=== PATIENT | female | born 1980 | race Caucasian/White ===

== ENCOUNTER → 2016-11-29 | Outpatient (RCR) | payer OTHER | END | disposition home or self-care (01) | LOC: M OUTALCOH 11-01 09:05 | PROVIDERS: ATTEND Psychiatry & Neurology Psychiatry | DX: F10.20 Alcohol dependence, uncomplicated (principal); Z72.0 Tobacco use ==

== ENCOUNTER 2016-12-13 09:00 | Outpatient (RCR) | payer OTHER | END 2016-12-27 | LOC: M OUTALCOH 09:00 | PROVIDERS: ATTEND Psychiatry & Neurology Psychiatry | DX: F10.20 Alcohol dependence, uncomplicated (principal); Z72.0 Tobacco use ==

== ENCOUNTER 2016-12-30 10:39 | Outpatient (RCR) | payer OTHER | END 2017-01-27 | LOC: M OUTALCOH 10:39 | PROVIDERS: ATTEND Psychiatry & Neurology Psychiatry | DX: F10.20 Alcohol dependence, uncomplicated (principal); Z72.0 Tobacco use ==

== ENCOUNTER → 2017-02-18 | Outpatient (CLI) | payer OTHER ==
--- NOTE | 2017-02-19 10:22 | REP ---
Lumbar spine five views: There are no comparisons. There is mild scoliosis convex right, possibly positional. Vertebral body heights, interspacing alignment are normal. There is no spondylolysis or spondylolisthesis. The pedicles, facets and sacroiliac articulations are unremarkable. There are two ligation clips in the pelvis. Both clips are on the right. Impression: Essentially negative lumbar spine except for mild scoliosis. There are ligation clips in the pelvis as described. Signed by Luke Thibodeaux MD 02/19/2017 10:12 A
== END ==
LOC: M WUC 17:48
PROVIDERS: ATTEND Physician Assistant
DX: M54.5 Low back pain (principal)

== ENCOUNTER → 2020-04-21 | Outpatient (REF) | payer OTHER | LOC: M LAB REF 17:27 | PROVIDERS: ATTEND Physician Assistant | DX: Z01.411 Encounter for gynecological examination (general) (routine) with abnormal findings (principal) | CPT/HCPCS: 87624; G0123 ==

== ENCOUNTER → 2021-03-09 | Outpatient (REF) | payer OTHER | LOC: M LAB REF 17:11 | PROVIDERS: ATTEND Nurse Practitioner Family | DX: Z12.4 Encounter for screening for malignant neoplasm of cervix (principal) | CPT/HCPCS: 87070; 87077; 87186; 87624; G0123 ==

== ENCOUNTER → 2021-06-01 | Outpatient (CLI) | payer OTHER ==
[2021-06-01 13:59] LABS: ALBUMIN 4.5 GM/DL (3.2-5.2); ALT/SGPT 20 U/L (12-78); BILIRUBIN,TOTAL 0.5 MG/DL (0.2-1.0); BLOOD UREA NITROGEN 9 MG/DL (7-18); CALCIUM LEVEL 9.5 MG/DL (8.5-10.1); CARBON DIOXIDE LEVEL 28 MEQ/L (21-32); CHLORIDE LEVEL 104 MEQ/L (98-107); CHOLESTEROL LEVEL 195 MG/DL (<200); CHOLESTEROL RISK RATIO 3.046 (<5); CREATININE FOR GFR 0.77 MG/DL (0.55-1.30); GLOMERULAR FILTRATION RATE > 60.0 (>58); GLUCOSE, FASTING 84 MG/DL (70-100); HDL CHOLESTEROL 64 MG/DL (>40); LDL CHOLESTEROL 114 MG/DL (<100); NON-HDL-C 131 MG/DL; SODIUM LEVEL 139 MEQ/L (136-145); TOTAL PROTEIN 7.5 GM/DL (6.4-8.2); TRIGLYCERIDES LEVEL 84 MG/DL (<150)
== END ==
LOC: M WUC 11:06
PROVIDERS: ATTEND Nurse Practitioner Family
DX: Z00.00 Encounter for general adult medical examination without abnormal findings (principal)

== ENCOUNTER → 2021-07-13 | Outpatient (CLI) | payer BC, OTHER ==
--- NOTE | 2021-07-13 15:12 | REPMRS ---
Patient History The patient states she has not had a clinical breast exam in over a year. Family history of breast cancer at age 52 in mother. Patient states no breast complaints today. Patient has signed MRS History Sheet. Digital Woman Screen Mammo: July 13, 2021 - Exam #: [id number] Bilateral CC and MLO view(s) were taken. Technologist: Roma Mckee, Technologist Prior study comparison: February 25, 2021, left breast diagnostic unilateral mammo performed at [facility]. May 21, 2020, bilateral digital mammo screening bilat, performed at [facility]. FINDINGS: The breast tissue is heterogeneously dense. This may lower the sensitivity of mammography. Screening. Digital screening (2D) mammography was performed bilaterally in the CC and MLO projections. Additionally, breast tomosynthesis (3D mammography) was performed bilaterally in the CC and MLO projections. Todays exam was compared to the prior exam/exams. By history, the patient has no complaints of a palpable breast abnormality or other significant breast complaints. The breasts are unchanged in size and shape. Once again, dense heterogenous fibroglandular elements are seen bilaterally in a stable appearing pattern but to such a degree that the sensitivity of the mammogram in detecting cancer is decreased.There are no shane-soft tissue densities or spiculated masses. There is no internal architectural distortion. There are no suspicious shane-calcific clusters. Skin thickening or nipple retraction is not present. IMPRESSION: BI-RADS Category 2- Benign Findings. There is no evidence of malignant alteration of the breasts. Followup examination recommended in one year. The Volpara volumetric breast density category is C, the breasts are heterogenously dense which may obscure small masses. This mammogram was read with the assistance of [facility],an FDA approved computer aided detection system for mammography. The lifetime Tyrer-Cuzick score is 24.9 % Due to the density of the breasts or Tyrer Cuzick score of 20% or greater, MRI/whole breast screening ultrasound is warranted. Negative x-ray reports should not delay surgical consultation if a dominant or clinically suspicious mass is present. Not all breast cancers can be identified by mammography. Therefore, we recommend that you continue to perform regular breast self-examination and physical examination and then promptly contact your physician of any concerns or changes. Adenosis and dense breasts may obscure an underlying neoplasm. Assessment: BI-RADS/ACR category 2 mammogram. Benign Findings. Recommendation Routine screening mammogram of both breasts in 1 year. Electronically Signed By: Hakeem Shine DO 07/13/21 [id number]
== END ==
LOC: M WHC 14:26
PROVIDERS: ATTEND Nurse Practitioner Family
DX: Z12.31 Encounter for screening mammogram for malignant neoplasm of breast (principal); Z80.3 Family history of malignant neoplasm of breast

== ENCOUNTER → 2022-03-17 | Outpatient (REF) | payer BC, OTHER | LOC: M SFHCDERM 18:52 | PROVIDERS: ATTEND Physician Assistant | DX: L30.9 Dermatitis, unspecified (principal); R21 Rash and other nonspecific skin eruption ==

== ENCOUNTER → 2023-03-21 | Outpatient (CLI) | payer BC, OTHER ==
[2023-03-21 13:20] LABS: ALBUMIN 4.4 G/DL (3.2-5.2); ALKALINE PHOSPHATASE 47 U/L (46-116); ALT/SGPT 14 U/L (7.0-40); AST/SGOT 13 U/L (<34); BILIRUBIN,TOTAL 0.5 MG/DL (0.3-1.2); BLOOD UREA NITROGEN 16 MG/DL (9-23); CALCIUM LEVEL 9.6 MG/DL (8.5-10.1); CARBON DIOXIDE LEVEL 28 MMOL/L (20-31); CHLORIDE LEVEL 108 MMOL/L (98-107); CHOLESTEROL LEVEL 168 MG/DL (<200); CREATININE FOR GFR 0.91 MG/DL (0.55-1.30); GLOMERULAR FILTRATION RATE > 60.0 (>58); GLUCOSE, FASTING 79 MG/DL (60-100); HDL CHOLESTEROL 57.8 MG/DL (>40); NON-HDL-C 110.2 MG/DL; POTASSIUM SERUM 4.6 MMOL/L (3.5-5.1); SODIUM LEVEL 139 MMOL/L (136-145); TOTAL PROTEIN 7.2 G/DL (5.7-8.2); TRIGLYCERIDES LEVEL 76 MG/DL (<150)
== END ==
LOC: M WUC 09:53
PROVIDERS: ATTEND Nurse Practitioner Family
DX: Z00.00 Encounter for general adult medical examination without abnormal findings (principal)

== ENCOUNTER → 2024-03-11 | Outpatient (CLI) | payer BC | LOC: M WHC 14:37 | PROVIDERS: ATTEND Nurse Practitioner Family | DX: Z12.31 Encounter for screening mammogram for malignant neoplasm of breast (principal) ==

== ENCOUNTER → 2024-03-27 | Outpatient (CLI) | payer BC | LOC: M WHC 12:59 | PROVIDERS: ATTEND Nurse Practitioner Family | DX: R92.2 Inconclusive mammogram (principal); R92.30 Dense breasts, unspecified | CPT/HCPCS: 76642; 77065; G0279 ==

== ENCOUNTER → 2025-02-24 | Outpatient (CLI) | payer BC ==
[2025-02-24 14:32] LABS: ALBUMIN 4.3 G/DL (3.2-5.2); BILIRUBIN,TOTAL 0.5 MG/DL (0.3-1.2); CALCIUM LEVEL 9.7 MG/DL (8.5-10.1); CHOLESTEROL RISK RATIO 3.43 (<5); CREATININE FOR GFR 0.98 MG/DL (0.55-1.30); GLOMERULAR FILTRATION RATE 72.5 (>58); HDL CHOLESTEROL 55.9 MG/DL (>40); LDL CHOLESTEROL 119.1 MG/DL (<100); NON-HDL-C 136.1 MG/DL; POTASSIUM SERUM 4.7 MMOL/L (3.5-5.1); TOTAL PROTEIN 7.3 G/DL (5.7-8.2)
== END ==
LOC: M WUC 12:15
PROVIDERS: ATTEND Nurse Practitioner Family
DX: Z00.00 Encounter for general adult medical examination without abnormal findings (principal)